=== PATIENT | female | born 1970 | race African-American/Black ===

== ENCOUNTER → 2019-05-29 | Outpatient (CLI) | payer OTHER ==
[~2019-05-29] MED LIST: ALTACE10 MG PO; CAPOTEN 25MG TA25 MG PO; CAPTOPRIL 25 MG OR; CEFTIN500 MG PO; CLONIDINE0.1 PO; DHEA TABLET1 EACH; DOXYCYCLINE 10100 M1 PO; FOLIC ACID1 MG PO; HYDROCHLOROTHIA25 M1 PO; HYDROXYCHLOROQ200 M1 PO; IRON325 PO; KEFLEX500 MG PO; MULTI VITAMIN1 EACH PO; PERCOCET 5-3251 EACH; PREDNISONE 5 MG5 M1; PROBENECID-COL1 EACH PO; RAMIPRIL5 MG PO; SINGULAIR 10 MG10 M1 PO; TRAMADOL 50 MG50 MG PO
== END ==
LOC: RAD 08:52
DX: S69.91XA Unspecified injury of right wrist, hand and finger(s), initial encounter (principal); X58.XXXA Exposure to other specified factors, initial encounter; Y93.89 Activity, other specified; Y92.89 Other specified places as the place of occurrence of the external cause; Y99.8 Other external cause status

== ENCOUNTER 2020-05-11 13:59 | Emergency (ER) | payer OTHER ==
[~2020-05-11] VITALS: Ht 172.7 cm; Wt 84.0 kg
[2020-05-11 15:15] LABS: ABSOLUTE NEUTROPHILS 6.2 thou/uL (1.4-8.2); BASOPHILS 0.6 % (0.0-2.0); HEMATOCRIT 38.5 % (37.0-47.0); HEMOGLOBIN 12.8 gm/dL (12.0-15.0); LYMPHOCYTES 14.6 % (24.0-44.0); MCH 26.7 pg (26.0-34.0); MCHC 33.2 g/dL (28.0-37.0); MCV 80.3 fL (80.0-100.0); MONOCYTES 4.2 % (1.0-8.0); POLYS 80.6 % (36.0-66.0); RDW 14.4 % (10.5-14.5); WBC 7.6 thou/uL (4.0-11.0)
[2020-05-11 15:25] LABS: CALCIUM 9.3 mg/dL (8.5-10.1); CREATININE 0.7 mg/dL (0.6-1.0); POTASSIUM 4.6 mmol/L (3.5-5.1)
[2020-05-11 15:31] LABS: ALBUMIN 3.7 g/dL (3.4-5.0); TOTAL BILIRUBIN 0.5 mg/dL (0.2-1.0); TOTAL PROTEIN 9.1 g/dL (6.4-8.2)
[2020-05-11 15:40] LABS: URINE BILIRUBIN NEGATIVE (Negative); URINE BLOOD NEGATIVE (Negative); URINE CLARITY CLEAR; URINE COLOR YELLOW; URINE GLUCOSE-RANDOM* NEGATIVE (Negative); URINE KETONES NEGATIVE (Negative); URINE LEUKOCYTES-REFLEX NEGATIVE (Negative); URINE NITRITE-REFLEX NEGATIVE (Negative); URINE PROTEIN (DIPSTICK) NEGATIVE (Negative); URINE SPECIFIC GRAVITY 1.015 (1.005-1.035); URINE UROBILINOGEN 0.2 E.U./dl (0.2-1.0)
[2020-05-11] MEDS ORDERED: NORVASC5 M1 PO (15:48)
[2020-05-11] MEDS ORDERED: ZINC SULFATE220 MG PO (15:48)
[2020-05-11] MEDS ORDERED: VITAMIN C100 MG PO (15:49)
[2020-05-11] MEDS ORDERED: KLOR-CON M2020 MEQ PO (15:49)
[2020-05-11 16:05] LABS: PLATELET COUNT 98 thou/uL (150-400)
[2020-05-11] MEDS ORDERED: PROMS25 WY RECTAL (16:53)
[2020-05-11 17:25] VITALS: BP 151/92
== END 2020-05-11 17:25 | disposition home or self-care (01) ==
LOC: ER 13:59
PROVIDERS: Physician Assistant
DX: U07.1 COVID-19 (principal); R10.9 Unspecified abdominal pain; R11.2 Nausea with vomiting, unspecified; I10 Essential (primary) hypertension; Z90.710 Acquired absence of both cervix and uterus; Z79.899 Other long term (current) drug therapy; Z88.2 Allergy status to sulfonamides; Z88.1 Allergy status to other antibiotic agents

== ENCOUNTER 2020-05-26 14:11 | Emergency (ER) | payer OTHER ==
[~2020-05-26] VITALS: Ht 172.7 cm; Wt 83.9 kg
--- NOTE | ~2020-05-26 | EMS ---
[address] [address] EMS Patient Care Report Name: BEBE HAYES Room #: REG WILBER Carreno#: [id number] Admission: 05/26/20 Attend Phys: Discharge: Date of : 70 Report #: [id number] THIS REPORT FOR: //name// Report Transmitted: 05/26/2020 14:51 EMS Care Summary [facility] MED-ACT Incident [id number] @ 05/26/2020 13:32 Incident Location [address] [place] [address] Patient BEBE HAYES Female, 50 Years 1970 Patient Address [address] [place] [address] Patient History Hypertension (HTN),Lupus, Patient Allergies Zithromax,Sulfa,Levaquin, Patient Medications Other, Amlodipine, Potassium, Ramipril, Chief Complaint Cramping Ab Pain Disposition Transported No Lights/[place] Reason Abdominal Pain/Problems Transported To [facility] Narrative [id number] arrived on scene and found [facility] personnel rendering pt care. Pt found conscious, sitting hunched forward in a wheel chair. Pt was holding a trash can, moaning in pain and occasionally dry heaving. Pt maintained own patent airway, was calm in demeanor, and was able to speak in clear and full [address] [address] EMS Patient Care Report Name: BEBE HAYES Room #: REG [facility]#: [id number] Admission: 05/26/20 Attend Phys: Discharge: Date of : 70 Report #: [id number] sentences. Pt states that she was working when she began to experience 10/10 cramping like abdominal pain in the top center of her abdomen, just below her sternum. Pt states pain started approximately 1 hour before EMS arrival. PT states she has vomited 3x in last hour since pain started. Pt denies any chest pain or dyspnea, denies pain radiating else where, and denies any blood in her vomit. Pt states she has had an episode similar to this several weeks ago for which she visited the ER and was discharged with the issue unresolved. Pt denies any PMH of gallstones or having her gallbladder removed. Pt denies any potential of and indicates she no longer gets her period. Pt indicates self-application a pressure over the CC area aides in pain reduction. M1142 assumed pt care from [facility] after a verbal pt report was received. Pt able to stand with minor assistance from wheel chair to cot. Pt secured to cot and loaded for transport. M1142 then assessed pt and collected VS to include a 12 lead ECG, the results of which were non-remarkable and found as charted. Zofran administered as charted for pt indication of nausea and urge to vomit. Pt did not vomit throughout course of pt care. Transport initiated at this time. Biocom to receiving facility. No significant changes in pt CC, LOC, or VS throughout transport. Pt to ED room bed under own power. Bed rails unable to be raised due to pt refusing to lay back on the bed, and continued to maintain hunched over posture, sitting off of the side of the bed. Pt report to receiving RN. Bernadette then cleared the call and returned to service. Initial Vitals @13:59P: 85,BP: 174/94,SpO2: 96, @13:58P: 80,SpO2: 96,OH Suspected: false @PTAP: 88,BP: 154/103,GCS: 15,Glucose: 148,SpO2: 96, @13:53P: 88,R: 16,BP: 161/95,Pain: 10/10,GCS: 15,SpO2: 96,Revised Trauma: 12, @14:03P: 85,R: 18,BP: 168/79,Pain: 8/10,GCS: 15,SpO2: 98,Revised Trauma: 12, @14:05P: 82,R: 18,BP: 147/89,Pain: 8/10,GCS: 15,SpO2: 99,Revised Trauma: 12, Assessments @13:49MENTAL:Person Oriented,Time Oriented,Place Oriented,Event Oriented,SKIN:HEENT:Head/Face: No Abnormalities,Neck/Airway: No Abnormalities,LUNG SOUNDS:Left Upper: Other,General: Other,Right Upper: Other,ABDOMEN:Left Upper: Other,General: Other,Right Upper: Other,PELVIS//GI:No Abnormalities,EXTREMITIES:Left Arm: No Abnormalities,Right Arm: No Abnormalities,Left Leg: No Abnormalities,Right Leg: No Abnormalities,PULSE:Radial: 2+ Normal,NEURO:No Abnormalities, Impression Abdominal Pain Procedures @13:5812-Lead ECGResponse: UnchangedSucceeded@13:56Ondansetron - 4 Milligrams (mg) - OralResponse: Improved [facility] [address] [place] [address] EMS Patient Care Report Name: BEBE HAYES Room #: REG [facility]#: [id number] Admission: 05/26/20 Attend Phys: Discharge: Date of : 70 Report #: [id number] 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[employer],BP: 154/103 M,PULSE: 88,RR: R,SPO2: 96 Ox,ETCO2: ,B,PAIN: ,GCS: 15, 13:31,Call Received 13:31,Psap Call 13:32,Dispatched 13:34,En Route 13:45,On Scene 13:48,At Patient 13:53,BP: 161/95 M,PULSE: 88,RR: 16 R,SPO2: 96 Ox,ETCO2: ,BG: ,PAIN: 10,GCS: 15, 13:56,Ondansetron - 4 Milligrams (mg) - Oral,Response: Improved 13:58,12-Lead ECG,Response: UnchangedSucceeded, 13:58,BP: / M,PULSE: 80,RR: R,SPO2: 96 Ox,ETCO2: ,BG: ,PAIN: ,GCS: , 13:59,BP: 174/94 M,PULSE: 85,RR: R,SPO2: 96 Ox,ETCO2: ,BG: ,PAIN: ,GCS: , 13:59,Depart Scene 14:03,BP: 168/79 M,PULSE: 85,RR: 18 R,SPO2: 98 Ox,ETCO2: ,BG: ,PAIN: 8,GCS: 15, 14:05,BP: 147/89 M,PULSE: 82,RR: 18 R,SPO2: 99 Ox,ETCO2: ,BG: ,PAIN: 8,GCS: 15, 14:08,At Destination 14:24,Call Closed Disclaimer v1.1 Copyright 2020 [employer] This EMS Care Summary contains data elements from the applicable legal record (which may be displayed differently). It is designed to provide pertinent information for the following purposes: continuity of care, clinical quality, and state data reporting. The complete legal record is available to ED staff and administrators of the receiving hospital in [facility]'s Patient Tracker. All data is provided "as is."
[~2020-05-26 14:11] MED LIST changes: +KLOR-CON M2020 MEQ PO; +NORVASC5 M1 PO; +PROMS25 WY RECTAL; +VITAMIN C100 MG PO; +ZINC SULFATE220 MG PO
[2020-05-26 14:43] LABS: ABSOLUTE NEUTROPHILS 4.9 thou/uL (1.4-8.2); EOSINOPHILS 0.3 % (0.0-3.0); HEMATOCRIT 39.6 % (37.0-47.0); HEMOGLOBIN 13.5 gm/dL (12.0-15.0); LYMPHOCYTES 21.5 % (24.0-44.0); MCH 26.8 pg (26.0-34.0); MCHC 34.1 g/dL (28.0-37.0); MCV 78.7 fL (80.0-100.0); MONOCYTES 7.5 % (1.0-8.0); PLATELET COUNT 118 thou/uL (150-400); POLYS 69.7 % (36.0-66.0); RBC 5.03 mil/uL (4.20-5.00); RDW 14.7 % (10.5-14.5)
[2020-05-26 15:00] LABS: ALBUMIN 4.2 g/dL (3.4-5.0); CALCIUM 9.7 mg/dL (8.5-10.1); CREATININE 1.1 mg/dL (0.6-1.0); TOTAL BILIRUBIN 0.6 mg/dL (0.2-1.0)
[2020-05-26] MEDS ORDERED: CLONIDINE HCL0.1 MG PO (16:00)
[2020-05-26] MEDS ORDERED: RAMIPRIL10 MG PO (16:00)
[2020-05-26] MEDS ORDERED: HYDROCHLOROTHIA25 M2 PO (16:01)
[2020-05-26] MEDS ORDERED: KLOR-CON 1010 MEQ PO (16:01)
[2020-05-26] MEDS ORDERED: IPRATROPIUM BRO15 ML NASAL (16:03)
[2020-05-26 18:02] VITALS: BP 158/93
--- NOTE | 2020-05-27 07:22 | EKG ---
[facility] [place] [address] ELECTROCARDIOGRAM REPORT Name: BEBE HAYES [id number] Admission: 05/26/20 Attend Phys: Discharge: 05/26/20 Date of : 70 Report #: [id number] THIS REPORT FOR: cc: Cassandra Arango MD, Sarah N. 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1970 Requested By: Nicol Abbott Order Number: [id number] MD: Mynor Xie Measurements Intervals [place] Rate: 87 P: 55 CA: 175 QRS: 1 QRSD: 84 T: -10 QT: 392 QTc: 472 Interpretive Statements Sinus rhythm Probable left atrial enlargement Probable left ventricular hypertrophy Baseline wander in lead(s) I,II,aVR Compared to ECG 09/28/2015 10:54:30 Ventricular premature complex(es) no longer present Electronically Signed On 05-27-2020 7:22:05 CDT by Mynor Xie [email or web address] <ELECTRONICALLY SIGNED> By: Mynor Xie MD, FAC 05/27/20 0722 [id number] Mynor Xie MD, [facility] /EPI
== END 2020-05-26 18:02 | disposition home or self-care (01) ==
LOC: ER 14:11
PROVIDERS: Emergency Medicine
DX: R10.13 Epigastric pain (principal); R11.2 Nausea with vomiting, unspecified; R51 Headache; E87.6 Hypokalemia; I10 Essential (primary) hypertension; Z90.711 Acquired absence of uterus with remaining cervical stump; Z79.899 Other long term (current) drug therapy; Z88.1 Allergy status to other antibiotic agents; Z88.2 Allergy status to sulfonamides